=== PATIENT | male | born 1940 | race Caucasian/White ===

== ENCOUNTER 2024-05-14 07:34 | Day surgery (SDC) | payer MEDICARE, SELFPAY ==
[2024-05-14] VITALS (8 sets, daily range): BP systolic 100–127; BP diastolic 53–79; BMI 31.0
[2024-05-14] MEDS: NSS 320 ML IV (08:10)
--- NOTE | 2024-05-14 15:22 | ITS.CL.PN ---
[facility] - Procedure Note
Procedure
Procedure Note:
CARDIAC CATHETERIZATION REPORT
Date of Procedure: 05/14/2024
Referring: Dr. Gary Oneill MD, PhD
Indication: systolic heart failure, positive cardiac stress test
PROCEDURE(S)
1. right heart catheterization
2. left heart catheterization
3. coronary angiography
ACCESS
1. 6F right radial artery (closure: radial band)
2. 5F right antecubital vein (closure: manual hemostasis)
CATHETERS
1. 5F Roslyn-Magen
2. 6F JR4
3. 6F JL3.5
MODERATE SEDATION: 27 minutes of moderate sedation was utilized. An independent medical records assistant was present to assist with and help manage the patient's level of consciousness and physiologic status.
ULTRASOUND GUIDED VASCULAR ACCESS (right radial artery): Ultrasound was utilized for vascular access. The vessel was visualized under ultrasound and noted to be patent. An image of the vessel was stored permanently in the patient's medical record.
Under direct ultrasound guidance, vascular access was obtained using a modified Seldinger technique and a 6 Welsh sheath was placed.
ULTRASOUND GUIDED VASCULAR ACCESS (right brachial vein): Ultrasound was utilized for vascular access. The vessel was visualized under ultrasound and noted to be patent. An image of the vessel was stored permanently in the patient's medical record.
Under direct ultrasound guidance, vascular access was obtained using a modified Seldinger technique and a 5 Welsh sheath was placed.
HEMODYNAMIC DATA
LV 97/9 (EDP 13) mmHg
AO 91/55 (mean 67) mmHg
RA 9 mmHg
RV 25/6 (EDP 9) mmHg
PA 27/13 (mean 19) mmHg
PCWP 10 mmHg
SaO2 93.1%
SvO2 66.2%
Hb 13.1 g/dL
CO/CI 6.0/2.6 L/min/m2
SVR 773 dsc*-5
PVR 1.5 Wood units
CORONARY ANGIOGRAPHY
Dominance: Right
LM: Large vessel with trivial luminal irregularities
LAD: Large vessel giving rise to a large D1, large D2, small D3, small D4, and multiple septal perforators. There is mild nonobstructive disease.
LCx: Moderate caliber vessel giving rise to a moderate caliber OM1 and small OM2. There is mild nonobstructive disease.
RCA: Large vessel giving rise to a large marginal branch supplying part of the inferior wall, large RPDA, and moderate caliber RPL branch. There is mild nonobstructive disease.
RADIATION: dose for 56 mGy; DAP 32.1 Gy*cm2; fluoroscopy time 3.8 min
CONCLUSIONS
1. expectant management after cardiac catheterization via right radial artery approach
2. mild nonobstructive coronary artery disease in a right dominant system
3. normal biventricular filling pressures, normal pulmonary artery pressure, and normal cardiac output.
4. mo aortic stenosis on hemodynamic pullback
RECOMMENDATIONS
1. aggressive secondary prevention of coronary artery disease
2. continue current GDMT for heart failure, repeat echo in 2 months to determine response to GDMT
Copy to: Jennifer Morris NP (PCP)
Signed: Nirav Zacarias MD, PhD
== END 2024-05-14 13:00 | disposition home or self-care (01) ==
LOC: CATH 07:34
PROVIDERS: ATTENDING PHYSICIAN Student in an Organized Health Care Education/Training Program
DX: I50.20 Unspecified systolic (congestive) heart failure (principal); I25.10 Atherosclerotic heart disease of native coronary artery without angina pectoris; I35.0 Nonrheumatic aortic (valve) stenosis; Z79.82 Long term (current) use of aspirin; Z79.02 Long term (current) use of antithrombotics/antiplatelets; Z79.899 Other long term (current) drug therapy
CPT/HCPCS: 99152; 99153; 76937; 93460; C1894

== ENCOUNTER → 2024-08-08 12:49 | Outpatient (REF) | payer MEDICARE, SELFPAY | LOC: RCS 12:49 | PROVIDERS: ATTENDING PHYSICIAN Student in an Organized Health Care Education/Training Program | DX: I42.8 Other cardiomyopathies (principal) | CPT/HCPCS: 93306 ==